=== PATIENT | male | born 1965 | race African-American/Black ===

== ENCOUNTER 2020-12-03 13:13 | Inpatient (IN) | payer OTHER ==
[2020-12-03 16:17] VITALS: BMI 25.8
[2020-12-03] MEDS ORDERED: IBUPROFEN 400 MG TABLET (FP) PO PRN (20:51)
[2020-12-03] MEDS ORDERED: guaiFENesin 200 MG/10 ML 10 ML UNIT-DOSE CUPS PO PRN (20:51)
[2020-12-03] MEDS ORDERED: P-EPHED 60MG/TRIPROLIDI 2.5MG TABLET PO PRN (20:51)
[2020-12-03] MEDS ORDERED: ACETAMINOPHEN 325 MG TABLET (FP) PO PRN (20:51)
[2020-12-03] MEDS ORDERED: MAG HYDROX/AL HYDROX/SIMETH 30 ML UNIT-DOSE CUP PO PRN (20:51)
[2020-12-03] MEDS ORDERED: MAGNESIUM CITRATE 300 ML BOTTLE PO PRN (20:51)
[2020-12-03] MEDS ORDERED: LOPERAMIDE HCL 2 MG CAPSULE PO PRN (20:51)
[2020-12-03] MEDS ORDERED: MAGNESIUM HYDROX 2400MG/30ML ORAL SUSPENSION 30 ML CUP PO PRN (20:51)
[2020-12-03] MEDS ORDERED: TUBERCULIN PPD 5 TU/0.1ML VIAL ID ONE ×2 (21:51→23:50)
[2020-12-03] MEDS: MELATONIN 5 MG TABLETS PO SCH (23:47)
[2020-12-03] MEDS: THIAMINE HCL 100 MG TABLET (FP) PO SCH (23:49)
[2020-12-04] MEDS: PRENATAL VITAMINS W/ FOLIC ACID TABLET (FP) PO SCH (09:23)
[2020-12-04] MEDS: ESCITALOPRAM OXALATE 10 MG TABLET PO SCH (09:53)
[2020-12-04] MEDS: COLLOIDAL OATMEAL 1 BAR EACH TP PRN (12:06)
[2020-12-04 12:36] LABS: HEMATOCRIT 32.4 % (35.4-49); HEMOGLOBIN 10.3 GM/dL (11.7-16.9); MCHC 31.9 g/dl (32.0-35.9); MEAN CELL VOLUME 78.5 fl (80-96); MEAN PLT VOLUME 7.9 fl (7.5-11.1); PLATELET COUNT 310 K/MM3 (134-434); RBC 4.13 M/mm3 (4.00-5.60); RDW 20.4 % (11.9-15.9); WHITE BLOOD COUNT 2.8 K/mm3 (4.0-10.0)
[2020-12-04 12:57] LABS: BLOOD UREA NITROGEN 14.8 mg/dL (7-18); CALCIUM 9.5 mg/dL (8.5-10.1)
[2020-12-04 12:59] LABS: ALBUMIN 3.5 g/dl (3.4-5.0)
[2020-12-04 13:01] LABS: CREATININE 1.2 mg/dL (0.55-1.3)
[2020-12-04 13:02] LABS: BILIRUBIN,TOTAL 0.4 mg/dL (0.2-1); TOT PROT 6.6 g/dl (6.4-8.2)
[2020-12-04] MEDS ORDERED: MIRTAZAPINE 15 MG TABLET (FP) ONE (21:23)
[2020-12-04] MEDS ORDERED: PATIENT'S OWN MEDICATION (NON-FORMULARY) (Calcipotriene 0.005% Top Crm 60 GM Tube) TP SCH (22:00)
[2020-12-04] MEDS: MELATONIN 5 MG TABLETS PO SCH (22:11)
[2020-12-04] MEDS: FAMOTIDINE 20 MG TABLET PO SCH (22:11)
[2020-12-04] MEDS: THIAMINE HCL 100 MG TABLET (FP) PO SCH (22:11)
[2020-12-04] MEDS: MIRTAZAPINE 30 MG TABLET PO SCH (22:12)
[2020-12-04] MEDS ORDERED: PT OWN MED DRAWER 7, Y5N ONE ×2 (22:13→22:16)
[2020-12-04] MEDS: TRIAMCINOLONE ACET 0.5% CREAM 15 GM TUBE TP SCH (22:13)
[2020-12-04] MEDS: TIMOLOL 0.5% OPHTHALMIC SOL 5 ML BOTTLE OD SCH (22:15)
[2020-12-05] MEDS ORDERED: PT OWN MED DRAWER 7, Y5N ONE ×6 (07:35→23:02)
[2020-12-05] MEDS: ESCITALOPRAM OXALATE 10 MG TABLET PO SCH (09:52)
[2020-12-05] MEDS: FAMOTIDINE 20 MG TABLET PO SCH ×2 (09:52→22:57)
[2020-12-05] MEDS: metoPROLOL SUCCINATE 25 MG TAB.SR.24H (FP) PO SCH (09:52)
[2020-12-05] MEDS: ISOSORBIDE MONONITRATE 30 MG TAB.SR.24H (FP) PO SCH (09:52)
[2020-12-05] MEDS: PRENATAL VITAMINS W/ FOLIC ACID TABLET (FP) PO SCH (09:55)
[2020-12-05] MEDS: ASPIRIN 81 MG CHEWABLE TABLETS PO SCH (09:55)
[2020-12-05] MEDS: TRIAMCINOLONE ACET 0.5% CREAM 15 GM TUBE TP SCH ×2 (09:55→22:58)
[2020-12-05] MEDS: FERROUS SO4 325 MG TABLET (FP) PO SCH (09:55)
[2020-12-05] MEDS: TIMOLOL 0.5% OPHTHALMIC SOL 5 ML BOTTLE OD SCH ×2 (09:56→22:58)
[2020-12-05] MEDS ORDERED: PATIENT'S OWN MEDICATION (NON-FORMULARY) (Ferrous Sulfate [Ferrous Sulfate] 325 MG Tablet) PO SCH (10:00)
[2020-12-05] MEDS ORDERED: PATIENT'S OWN MEDICATION (NON-FORMULARY) (Timolol Maleate/Pf [Timolol Maleate 0.5% Eye Dro AD SCH (10:00)
[2020-12-05 12:42] LABS: PH,URINE 6.5 (5.0-8.0); URINE APPEARANCE CLEAR; URINE BILIRUBIN NEGATIVE (NEGATIVE); URINE COLOR YELLOW; URINE GLUCOSE (UA) NEGATIVE (NEGATIVE); URINE KETONE NEGATIVE (NEGATIVE); URINE LEUK ESTERASE NEGATIVE (NEGATIVE); URINE NITRITE NEGATIVE (NEGATIVE); URINE PROTEIN NEGATIVE (NEGATIVE); URINE UROBILINOGEN 0.2 mg/dL (0.2-1.0)
[2020-12-05] MEDS ORDERED: MIRTAZAPINE 15 MG TABLET (FP) ONE (19:08)
[2020-12-05] MEDS: THIAMINE HCL 100 MG TABLET (FP) PO SCH (22:56)
[2020-12-05] MEDS: MELATONIN 5 MG TABLETS PO SCH (22:56)
[2020-12-05] MEDS: MIRTAZAPINE 30 MG TABLET PO SCH (22:58)
[2020-12-06] MEDS: metoPROLOL SUCCINATE 25 MG TAB.SR.24H (FP) PO SCH (09:45)
[2020-12-06] MEDS: ISOSORBIDE MONONITRATE 30 MG TAB.SR.24H (FP) PO SCH (09:45)
[2020-12-06] MEDS: PRENATAL VITAMINS W/ FOLIC ACID TABLET (FP) PO SCH (09:46)
[2020-12-06] MEDS: TRIAMCINOLONE ACET 0.5% CREAM 15 GM TUBE TP SCH ×2 (09:46→21:42)
[2020-12-06] MEDS: FAMOTIDINE 20 MG TABLET PO SCH ×2 (09:46→21:40)
[2020-12-06] MEDS: ESCITALOPRAM OXALATE 10 MG TABLET PO SCH (09:46)
[2020-12-06] MEDS: ASPIRIN 81 MG CHEWABLE TABLETS PO SCH (09:46)
[2020-12-06] MEDS: FERROUS SO4 325 MG TABLET (FP) PO SCH (09:46)
[2020-12-06] MEDS: TIMOLOL 0.5% OPHTHALMIC SOL 5 ML BOTTLE OD SCH ×2 (09:47→21:42)
[2020-12-06] MEDS ORDERED: MIRTAZAPINE 15 MG TABLET (FP) ONE (19:07)
[2020-12-06] MEDS ORDERED: PT OWN MED DRAWER 7, Y5N ONE (19:08)
[2020-12-06] MEDS: MELATONIN 5 MG TABLETS PO SCH (21:40)
[2020-12-06] MEDS: THIAMINE HCL 100 MG TABLET (FP) PO SCH (21:40)
[2020-12-06] MEDS: MIRTAZAPINE 30 MG TABLET PO SCH (21:41)
[2020-12-07 10:11] LABS: SARS-CoV-2 NAA Not Detected (Not Detected)
[2020-12-07] MEDS: ASPIRIN 81 MG CHEWABLE TABLETS PO SCH (10:27)
[2020-12-07] MEDS: FAMOTIDINE 20 MG TABLET PO SCH ×2 (10:27→22:54)
[2020-12-07] MEDS: ESCITALOPRAM OXALATE 10 MG TABLET PO SCH (10:28)
[2020-12-07] MEDS: ISOSORBIDE MONONITRATE 30 MG TAB.SR.24H (FP) PO SCH (10:29)
[2020-12-07] MEDS: FERROUS SO4 325 MG TABLET (FP) PO SCH (10:29)
[2020-12-07] MEDS: metoPROLOL SUCCINATE 25 MG TAB.SR.24H (FP) PO SCH (10:29)
[2020-12-07] MEDS: TIMOLOL 0.5% OPHTHALMIC SOL 5 ML BOTTLE OD SCH (10:29)
[2020-12-07] MEDS: PRENATAL VITAMINS W/ FOLIC ACID TABLET (FP) PO SCH (10:29)
[2020-12-07] MEDS: TRIAMCINOLONE ACET 0.5% CREAM 15 GM TUBE TP SCH ×2 (10:30→22:56)
[2020-12-07] MEDS ORDERED: MIRTAZAPINE 15 MG TABLET (FP) ONE (19:05)
[2020-12-07] MEDS: MELATONIN 5 MG TABLETS PO SCH (22:54)
[2020-12-07] MEDS: THIAMINE HCL 100 MG TABLET (FP) PO SCH (22:54)
[2020-12-07] MEDS: TIMOLOL 0.5% OPHTHALMIC SOL 5 ML BOTTLE OS SCH (22:55)
[2020-12-07] MEDS: MIRTAZAPINE 30 MG TABLET PO SCH (22:56)
[2020-12-08] MEDS ORDERED: PT OWN MED DRAWER 7, Y5N ONE (08:49)
[2020-12-08] MEDS: FAMOTIDINE 20 MG TABLET PO SCH ×2 (09:41→23:11)
[2020-12-08] MEDS: ASPIRIN 81 MG CHEWABLE TABLETS PO SCH (09:41)
[2020-12-08] MEDS: FERROUS SO4 325 MG TABLET (FP) PO SCH (09:41)
[2020-12-08] MEDS: PRENATAL VITAMINS W/ FOLIC ACID TABLET (FP) PO SCH (09:41)
[2020-12-08] MEDS: ESCITALOPRAM OXALATE 10 MG TABLET PO SCH (09:42)
[2020-12-08] MEDS: metoPROLOL SUCCINATE 25 MG TAB.SR.24H (FP) PO SCH (09:42)
[2020-12-08] MEDS: ISOSORBIDE MONONITRATE 30 MG TAB.SR.24H (FP) PO SCH (09:42)
[2020-12-08] MEDS: TIMOLOL 0.5% OPHTHALMIC SOL 5 ML BOTTLE OS SCH ×2 (09:43→23:12)
[2020-12-08] MEDS: TRIAMCINOLONE ACET 0.5% CREAM 15 GM TUBE TP SCH ×2 (09:43→23:11)
[2020-12-08] MEDS ORDERED: MIRTAZAPINE 15 MG TABLET (FP) ONE (19:16)
[2020-12-08] MEDS: MIRTAZAPINE 30 MG TABLET PO SCH (23:11)
[2020-12-08] MEDS: MELATONIN 5 MG TABLETS PO SCH (23:11)
[2020-12-08] MEDS: THIAMINE HCL 100 MG TABLET (FP) PO SCH (23:11)
[2020-12-09] MEDS: TRIAMCINOLONE ACET 0.5% CREAM 15 GM TUBE TP SCH (09:49)
[2020-12-09] MEDS: ASPIRIN 81 MG CHEWABLE TABLETS PO SCH (09:49)
[2020-12-09] MEDS: FERROUS SO4 325 MG TABLET (FP) PO SCH (09:50)
[2020-12-09] MEDS: ESCITALOPRAM OXALATE 10 MG TABLET PO SCH (09:50)
[2020-12-09] MEDS: ISOSORBIDE MONONITRATE 30 MG TAB.SR.24H (FP) PO SCH (09:50)
[2020-12-09] MEDS: PRENATAL VITAMINS W/ FOLIC ACID TABLET (FP) PO SCH (09:51)
[2020-12-09] MEDS: FAMOTIDINE 20 MG TABLET PO SCH ×2 (09:51→22:41)
[2020-12-09] MEDS: TIMOLOL 0.5% OPHTHALMIC SOL 5 ML BOTTLE OS SCH ×2 (09:51→22:44)
[2020-12-09] MEDS: metoPROLOL SUCCINATE 25 MG TAB.SR.24H (FP) PO SCH (09:52)
[2020-12-09] MEDS ORDERED: MIRTAZAPINE 15 MG TABLET (FP) ONE (19:31)
[2020-12-09] MEDS: MELATONIN 5 MG TABLETS PO SCH (22:42)
[2020-12-09] MEDS: THIAMINE HCL 100 MG TABLET (FP) PO SCH (22:42)
[2020-12-09] MEDS: MIRTAZAPINE 30 MG TABLET PO SCH (22:43)
[2020-12-10] MEDS: FAMOTIDINE 20 MG TABLET PO SCH ×2 (09:53→22:38)
[2020-12-10] MEDS: FERROUS SO4 325 MG TABLET (FP) PO SCH (09:53)
[2020-12-10] MEDS: metoPROLOL SUCCINATE 25 MG TAB.SR.24H (FP) PO SCH (09:53)
[2020-12-10] MEDS: ASPIRIN 81 MG CHEWABLE TABLETS PO SCH (09:53)
[2020-12-10] MEDS: ISOSORBIDE MONONITRATE 30 MG TAB.SR.24H (FP) PO SCH (09:53)
[2020-12-10] MEDS: TIMOLOL 0.5% OPHTHALMIC SOL 5 ML BOTTLE OS SCH ×2 (09:54→22:39)
[2020-12-10] MEDS: PRENATAL VITAMINS W/ FOLIC ACID TABLET (FP) PO SCH (09:54)
[2020-12-10] MEDS: ESCITALOPRAM OXALATE 10 MG TABLET PO SCH (09:54)
[2020-12-10] MEDS: CALCIPOTRIENE 0.005% TP SCH ×2 (11:52→22:39)
[2020-12-10] MEDS ORDERED: MASKS NR ONE (16:47)
[2020-12-10] MEDS ORDERED: MIRTAZAPINE 15 MG TABLET (FP) ONE (19:10)
[2020-12-10] MEDS: MIRTAZAPINE 30 MG TABLET PO SCH (22:38)
[2020-12-10] MEDS: THIAMINE HCL 100 MG TABLET (FP) PO SCH (22:39)
[2020-12-10] MEDS: MELATONIN 5 MG TABLETS PO SCH (22:41)
[2020-12-11] MEDS: ESCITALOPRAM OXALATE 10 MG TABLET PO SCH (09:52)
[2020-12-11] MEDS: FERROUS SO4 325 MG TABLET (FP) PO SCH (09:52)
[2020-12-11] MEDS: ASPIRIN 81 MG CHEWABLE TABLETS PO SCH (09:52)
[2020-12-11] MEDS: PRENATAL VITAMINS W/ FOLIC ACID TABLET (FP) PO SCH (09:53)
[2020-12-11] MEDS: metoPROLOL SUCCINATE 25 MG TAB.SR.24H (FP) PO SCH (09:53)
[2020-12-11] MEDS: FAMOTIDINE 20 MG TABLET PO SCH ×2 (09:53→22:50)
[2020-12-11] MEDS: ISOSORBIDE MONONITRATE 30 MG TAB.SR.24H (FP) PO SCH (09:53)
[2020-12-11] MEDS: CALCIPOTRIENE 0.005% TP SCH ×2 (09:54→22:59)
[2020-12-11] MEDS: TIMOLOL 0.5% OPHTHALMIC SOL 5 ML BOTTLE OS SCH ×2 (09:54→22:59)
[2020-12-11] MEDS ORDERED: MIRTAZAPINE 15 MG TABLET (FP) ONE (19:20)
[2020-12-11] MEDS ORDERED: PT OWN MED DRAWER 7, Y5N ONE (20:23)
[2020-12-11] MEDS: THIAMINE HCL 100 MG TABLET (FP) PO SCH (22:50)
[2020-12-11] MEDS: MELATONIN 5 MG TABLETS PO SCH (22:51)
[2020-12-11] MEDS: MIRTAZAPINE 30 MG TABLET PO SCH (22:51)
[2020-12-12] MEDS: FERROUS SO4 325 MG TABLET (FP) PO SCH (09:50)
[2020-12-12] MEDS: FAMOTIDINE 20 MG TABLET PO SCH ×2 (09:50→23:12)
[2020-12-12] MEDS: PRENATAL VITAMINS W/ FOLIC ACID TABLET (FP) PO SCH (09:51)
[2020-12-12] MEDS: ASPIRIN 81 MG CHEWABLE TABLETS PO SCH (09:51)
[2020-12-12] MEDS: ISOSORBIDE MONONITRATE 30 MG TAB.SR.24H (FP) PO SCH (09:51)
[2020-12-12] MEDS: CALCIPOTRIENE 0.005% TP SCH ×2 (09:51→23:12)
[2020-12-12] MEDS: ESCITALOPRAM OXALATE 10 MG TABLET PO SCH (09:51)
[2020-12-12] MEDS: metoPROLOL SUCCINATE 25 MG TAB.SR.24H (FP) PO SCH (09:51)
[2020-12-12] MEDS: TIMOLOL 0.5% OPHTHALMIC SOL 5 ML BOTTLE OS SCH ×2 (09:52→23:14)
[2020-12-12] MEDS ORDERED: MIRTAZAPINE 15 MG TABLET (FP) ONE (20:27)
[2020-12-12] MEDS ORDERED: PT OWN MED DRAWER 7, Y5N ONE (20:27)
[2020-12-12] MEDS: THIAMINE HCL 100 MG TABLET (FP) PO SCH (23:11)
[2020-12-12] MEDS: MELATONIN 5 MG TABLETS PO SCH (23:14)
[2020-12-12] MEDS: MIRTAZAPINE 30 MG TABLET PO SCH (23:14)
[2020-12-13] MEDS: FERROUS SO4 325 MG TABLET (FP) PO SCH (10:02)
[2020-12-13] MEDS: FAMOTIDINE 20 MG TABLET PO SCH ×2 (10:02→22:50)
[2020-12-13] MEDS: PRENATAL VITAMINS W/ FOLIC ACID TABLET (FP) PO SCH (10:03)
[2020-12-13] MEDS: ISOSORBIDE MONONITRATE 30 MG TAB.SR.24H (FP) PO SCH (10:03)
[2020-12-13] MEDS: metoPROLOL SUCCINATE 25 MG TAB.SR.24H (FP) PO SCH (10:03)
[2020-12-13] MEDS: ASPIRIN 81 MG CHEWABLE TABLETS PO SCH (10:03)
[2020-12-13] MEDS: ESCITALOPRAM OXALATE 10 MG TABLET PO SCH (10:03)
[2020-12-13] MEDS: CALCIPOTRIENE 0.005% TP SCH ×2 (10:04→22:50)
[2020-12-13] MEDS: TIMOLOL 0.5% OPHTHALMIC SOL 5 ML BOTTLE OS SCH ×2 (10:05→22:50)
[2020-12-13] MEDS ORDERED: PT OWN MED DRAWER 7, Y5N ONE ×2 (10:07→18:41)
[2020-12-13] MEDS ORDERED: MIRTAZAPINE 15 MG TABLET (FP) ONE (18:39)
[2020-12-13] MEDS: MELATONIN 5 MG TABLETS PO SCH (22:50)
[2020-12-13] MEDS: THIAMINE HCL 100 MG TABLET (FP) PO SCH (22:50)
[2020-12-13] MEDS: MIRTAZAPINE 30 MG TABLET PO SCH (22:50)
[2020-12-14] MEDS: CALCIPOTRIENE 0.005% TP SCH ×2 (10:17→22:59)
[2020-12-14] MEDS: ESCITALOPRAM OXALATE 10 MG TABLET PO SCH (10:18)
[2020-12-14] MEDS: TIMOLOL 0.5% OPHTHALMIC SOL 5 ML BOTTLE OS SCH ×2 (10:18→22:59)
[2020-12-14] MEDS: FAMOTIDINE 20 MG TABLET PO SCH ×2 (10:18→22:59)
[2020-12-14] MEDS: FERROUS SO4 325 MG TABLET (FP) PO SCH (10:18)
[2020-12-14] MEDS: ISOSORBIDE MONONITRATE 30 MG TAB.SR.24H (FP) PO SCH (10:18)
[2020-12-14] MEDS: ASPIRIN 81 MG CHEWABLE TABLETS PO SCH (10:19)
[2020-12-14] MEDS: metoPROLOL SUCCINATE 25 MG TAB.SR.24H (FP) PO SCH (10:19)
[2020-12-14] MEDS: PRENATAL VITAMINS W/ FOLIC ACID TABLET (FP) PO SCH (10:19)
[2020-12-14] MEDS ORDERED: PT OWN MED DRAWER 7, Y5N ONE (20:00)
[2020-12-14] MEDS ORDERED: MIRTAZAPINE 15 MG TABLET (FP) ONE (20:00)
[2020-12-14] MEDS: THIAMINE HCL 100 MG TABLET (FP) PO SCH (22:59)
[2020-12-14] MEDS: MIRTAZAPINE 30 MG TABLET PO SCH (22:59)
[2020-12-14] MEDS: MELATONIN 5 MG TABLETS PO SCH (22:59)
[2020-12-15] MEDS ORDERED: PT OWN MED DRAWER 7, Y5N ONE ×2 (08:09→22:39)
[2020-12-15] MEDS: CALCIPOTRIENE 0.005% TP SCH ×2 (10:10→22:37)
[2020-12-15] MEDS: TIMOLOL 0.5% OPHTHALMIC SOL 5 ML BOTTLE OS SCH ×2 (10:10→22:36)
[2020-12-15] MEDS: ISOSORBIDE MONONITRATE 30 MG TAB.SR.24H (FP) PO SCH (10:11)
[2020-12-15] MEDS: ESCITALOPRAM OXALATE 10 MG TABLET PO SCH (10:11)
[2020-12-15] MEDS: FERROUS SO4 325 MG TABLET (FP) PO SCH (10:11)
[2020-12-15] MEDS: FAMOTIDINE 20 MG TABLET PO SCH ×2 (10:11→22:35)
[2020-12-15] MEDS: PRENATAL VITAMINS W/ FOLIC ACID TABLET (FP) PO SCH (10:12)
[2020-12-15] MEDS: metoPROLOL SUCCINATE 25 MG TAB.SR.24H (FP) PO SCH (10:12)
[2020-12-15] MEDS: ASPIRIN 81 MG CHEWABLE TABLETS PO SCH (10:12)
[2020-12-15] MEDS ORDERED: MIRTAZAPINE 15 MG TABLET (FP) ONE (19:14)
[2020-12-15] MEDS: MELATONIN 5 MG TABLETS PO SCH (22:34)
[2020-12-15] MEDS: THIAMINE HCL 100 MG TABLET (FP) PO SCH (22:34)
[2020-12-15] MEDS: MIRTAZAPINE 30 MG TABLET PO SCH (22:35)
[2020-12-16] MEDS: ESCITALOPRAM OXALATE 10 MG TABLET PO SCH (09:58)
[2020-12-16] MEDS: ISOSORBIDE MONONITRATE 30 MG TAB.SR.24H (FP) PO SCH (09:58)
[2020-12-16] MEDS: metoPROLOL SUCCINATE 25 MG TAB.SR.24H (FP) PO SCH (09:58)
[2020-12-16] MEDS: ASPIRIN 81 MG CHEWABLE TABLETS PO SCH (09:59)
[2020-12-16] MEDS: CALCIPOTRIENE 0.005% TP SCH ×2 (09:59→22:32)
[2020-12-16] MEDS: FAMOTIDINE 20 MG TABLET PO SCH ×2 (09:59→22:31)
[2020-12-16] MEDS: FERROUS SO4 325 MG TABLET (FP) PO SCH (09:59)
[2020-12-16] MEDS: PRENATAL VITAMINS W/ FOLIC ACID TABLET (FP) PO SCH (09:59)
[2020-12-16] MEDS: TIMOLOL 0.5% OPHTHALMIC SOL 5 ML BOTTLE OS SCH ×2 (10:00→22:32)
[2020-12-16] MEDS ORDERED: MIRTAZAPINE 15 MG TABLET (FP) ONE (19:11)
[2020-12-16] MEDS ORDERED: PT OWN MED DRAWER 7, Y5N ONE (19:12)
[2020-12-16] MEDS: THIAMINE HCL 100 MG TABLET (FP) PO SCH (22:31)
[2020-12-16] MEDS: MIRTAZAPINE 30 MG TABLET PO SCH (22:31)
[2020-12-16] MEDS: MELATONIN 5 MG TABLETS PO SCH (22:31)
[2020-12-17] MEDS: ASPIRIN 81 MG CHEWABLE TABLETS PO SCH (10:29)
[2020-12-17] MEDS: ISOSORBIDE MONONITRATE 30 MG TAB.SR.24H (FP) PO SCH (10:29)
[2020-12-17] MEDS: FERROUS SO4 325 MG TABLET (FP) PO SCH (10:29)
[2020-12-17] MEDS: PRENATAL VITAMINS W/ FOLIC ACID TABLET (FP) PO SCH (10:30)
[2020-12-17] MEDS: ESCITALOPRAM OXALATE 10 MG TABLET PO SCH (10:30)
[2020-12-17] MEDS: FAMOTIDINE 20 MG TABLET PO SCH ×2 (10:30→23:07)
[2020-12-17] MEDS: metoPROLOL SUCCINATE 25 MG TAB.SR.24H (FP) PO SCH (10:31)
[2020-12-17] MEDS: TIMOLOL 0.5% OPHTHALMIC SOL 5 ML BOTTLE OS SCH ×2 (10:31→23:08)
[2020-12-17] MEDS: CALCIPOTRIENE 0.005% TP SCH ×2 (11:00→23:08)
[2020-12-17] MEDS: MELATONIN 5 MG TABLETS PO SCH (23:07)
[2020-12-17] MEDS: MIRTAZAPINE 30 MG TABLET PO SCH (23:07)
[2020-12-17] MEDS: THIAMINE HCL 100 MG TABLET (FP) PO SCH (23:07)
[2020-12-17] MEDS ORDERED: PT OWN MED DRAWER 7, Y5N ONE (23:12)
[2020-12-18] MEDS: TIMOLOL 0.5% OPHTHALMIC SOL 5 ML BOTTLE OS SCH ×2 (10:04→22:57)
[2020-12-18] MEDS: CALCIPOTRIENE 0.005% TP SCH ×2 (10:04→22:56)
[2020-12-18] MEDS: FERROUS SO4 325 MG TABLET (FP) PO SCH (10:05)
[2020-12-18] MEDS: ASPIRIN 81 MG CHEWABLE TABLETS PO SCH (10:05)
[2020-12-18] MEDS: metoPROLOL SUCCINATE 25 MG TAB.SR.24H (FP) PO SCH (10:05)
[2020-12-18] MEDS: ESCITALOPRAM OXALATE 10 MG TABLET PO SCH (10:05)
[2020-12-18] MEDS: FAMOTIDINE 20 MG TABLET PO SCH ×2 (10:05→22:56)
[2020-12-18] MEDS: ISOSORBIDE MONONITRATE 30 MG TAB.SR.24H (FP) PO SCH (10:05)
[2020-12-18] MEDS: PRENATAL VITAMINS W/ FOLIC ACID TABLET (FP) PO SCH (10:06)
[2020-12-18] MEDS ORDERED: PT OWN MED DRAWER 7, Y5N ONE ×3 (10:39→22:44)
[2020-12-18] MEDS ORDERED: MIRTAZAPINE 15 MG TABLET (FP) ONE (19:02)
[2020-12-18] MEDS: THIAMINE HCL 100 MG TABLET (FP) PO SCH (22:56)
[2020-12-18] MEDS: MELATONIN 5 MG TABLETS PO SCH (22:56)
[2020-12-18] MEDS: MIRTAZAPINE 30 MG TABLET PO SCH (22:57)
[2020-12-19] MEDS: FAMOTIDINE 20 MG TABLET PO SCH ×2 (09:46→23:19)
[2020-12-19] MEDS: ASPIRIN 81 MG CHEWABLE TABLETS PO SCH (09:46)
[2020-12-19] MEDS: ISOSORBIDE MONONITRATE 30 MG TAB.SR.24H (FP) PO SCH (09:46)
[2020-12-19] MEDS: FERROUS SO4 325 MG TABLET (FP) PO SCH (09:46)
[2020-12-19] MEDS: PRENATAL VITAMINS W/ FOLIC ACID TABLET (FP) PO SCH (09:46)
[2020-12-19] MEDS: metoPROLOL SUCCINATE 25 MG TAB.SR.24H (FP) PO SCH (09:46)
[2020-12-19] MEDS: TIMOLOL 0.5% OPHTHALMIC SOL 5 ML BOTTLE OS SCH ×2 (09:47→23:21)
[2020-12-19] MEDS: ESCITALOPRAM OXALATE 10 MG TABLET PO SCH (09:47)
[2020-12-19] MEDS: CALCIPOTRIENE 0.005% TP SCH ×2 (09:49→23:18)
[2020-12-19] MEDS ORDERED: HYDROCORTISONE 1% TOPICAL OINT 30 GM TUBE TP PRN (13:30)
[2020-12-19] MEDS ORDERED: PT OWN MED DRAWER 7, Y5N ONE (15:29)
[2020-12-19] MEDS ORDERED: MIRTAZAPINE 15 MG TABLET (FP) ONE (19:23)
[2020-12-19] MEDS: THIAMINE HCL 100 MG TABLET (FP) PO SCH (23:19)
[2020-12-19] MEDS: MIRTAZAPINE 30 MG TABLET PO SCH (23:19)
[2020-12-19] MEDS: MELATONIN 5 MG TABLETS PO SCH (23:21)
[2020-12-20] MEDS: FAMOTIDINE 20 MG TABLET PO SCH ×2 (09:37→23:21)
[2020-12-20] MEDS: FERROUS SO4 325 MG TABLET (FP) PO SCH (09:37)
[2020-12-20] MEDS: ESCITALOPRAM OXALATE 10 MG TABLET PO SCH (09:37)
[2020-12-20] MEDS: ASPIRIN 81 MG CHEWABLE TABLETS PO SCH (09:37)
[2020-12-20] MEDS: metoPROLOL SUCCINATE 25 MG TAB.SR.24H (FP) PO SCH (09:38)
[2020-12-20] MEDS: PRENATAL VITAMINS W/ FOLIC ACID TABLET (FP) PO SCH (09:38)
[2020-12-20] MEDS: ISOSORBIDE MONONITRATE 30 MG TAB.SR.24H (FP) PO SCH (09:38)
[2020-12-20] MEDS: TIMOLOL 0.5% OPHTHALMIC SOL 5 ML BOTTLE OS SCH ×2 (09:39→23:21)
[2020-12-20] MEDS: CALCIPOTRIENE 0.005% TP SCH ×2 (09:40→23:21)
[2020-12-20] MEDS: MIRTAZAPINE 30 MG TABLET PO SCH (23:21)
[2020-12-20] MEDS: THIAMINE HCL 100 MG TABLET (FP) PO SCH (23:21)
[2020-12-20] MEDS: MELATONIN 5 MG TABLETS PO SCH (23:21)
[2020-12-20] MEDS ORDERED: PT OWN MED DRAWER 7, Y5N ONE (23:29)
[2020-12-21] MEDS ORDERED: PT OWN MED DRAWER 7, Y5N ONE (08:50)
[2020-12-21] MEDS: FERROUS SO4 325 MG TABLET (FP) PO SCH (09:14)
[2020-12-21] MEDS: FAMOTIDINE 20 MG TABLET PO SCH ×2 (09:14→22:21)
[2020-12-21] MEDS: ESCITALOPRAM OXALATE 10 MG TABLET PO SCH (09:14)
[2020-12-21] MEDS: PRENATAL VITAMINS W/ FOLIC ACID TABLET (FP) PO SCH (09:15)
[2020-12-21] MEDS: ISOSORBIDE MONONITRATE 30 MG TAB.SR.24H (FP) PO SCH (09:15)
[2020-12-21] MEDS: metoPROLOL SUCCINATE 25 MG TAB.SR.24H (FP) PO SCH (09:15)
[2020-12-21] MEDS: ASPIRIN 81 MG CHEWABLE TABLETS PO SCH (09:15)
[2020-12-21] MEDS: TIMOLOL 0.5% OPHTHALMIC SOL 5 ML BOTTLE OS SCH ×2 (09:16→22:21)
[2020-12-21] MEDS: CALCIPOTRIENE 0.005% TP SCH ×2 (09:16→22:22)
[2020-12-21] MEDS ORDERED: MIRTAZAPINE 15 MG TABLET (FP) ONE (18:44)
[2020-12-21] MEDS: MELATONIN 5 MG TABLETS PO SCH (22:20)
[2020-12-21] MEDS: MIRTAZAPINE 30 MG TABLET PO SCH (22:20)
[2020-12-21] MEDS: THIAMINE HCL 100 MG TABLET (FP) PO SCH (22:20)
[2020-12-22] MEDS ORDERED: PT OWN MED DRAWER 7, Y5N ONE ×2 (09:08→22:24)
[2020-12-22] MEDS: ESCITALOPRAM OXALATE 10 MG TABLET PO SCH (10:41)
[2020-12-22] MEDS: PRENATAL VITAMINS W/ FOLIC ACID TABLET (FP) PO SCH (10:42)
[2020-12-22] MEDS: FAMOTIDINE 20 MG TABLET PO SCH ×2 (10:42→22:24)
[2020-12-22] MEDS: FERROUS SO4 325 MG TABLET (FP) PO SCH (10:42)
[2020-12-22] MEDS: CALCIPOTRIENE 0.005% TP SCH ×2 (10:42→22:25)
[2020-12-22] MEDS: ISOSORBIDE MONONITRATE 30 MG TAB.SR.24H (FP) PO SCH (10:42)
[2020-12-22] MEDS: ASPIRIN 81 MG CHEWABLE TABLETS PO SCH (10:42)
[2020-12-22] MEDS: metoPROLOL SUCCINATE 25 MG TAB.SR.24H (FP) PO SCH (10:42)
[2020-12-22] MEDS: TIMOLOL 0.5% OPHTHALMIC SOL 5 ML BOTTLE OS SCH ×2 (10:43→22:25)
[2020-12-22] MEDS ORDERED: MIRTAZAPINE 15 MG TABLET (FP) ONE (18:23)
[2020-12-22] MEDS: MELATONIN 5 MG TABLETS PO SCH (22:22)
[2020-12-22] MEDS: THIAMINE HCL 100 MG TABLET (FP) PO SCH (22:22)
[2020-12-22] MEDS: MIRTAZAPINE 30 MG TABLET PO SCH (22:24)
[2020-12-22] MEDS: COLLOIDAL OATMEAL 1 BAR EACH TP PRN (22:27)
[2020-12-23 06:32] VITALS: BP 139/82; PULSE 691; TEMP 97
[2020-12-23] MEDS ORDERED: PT OWN MED DRAWER 7, Y5N ONE (08:36)
[2020-12-23] MEDS: CALCIPOTRIENE 0.005% TP SCH (09:00)
[2020-12-23] MEDS: ASPIRIN 81 MG CHEWABLE TABLETS PO SCH (09:00)
[2020-12-23] MEDS: FERROUS SO4 325 MG TABLET (FP) PO SCH (09:00)
[2020-12-23] MEDS: TIMOLOL 0.5% OPHTHALMIC SOL 5 ML BOTTLE OS SCH (09:01)
[2020-12-23] MEDS: ESCITALOPRAM OXALATE 10 MG TABLET PO SCH (09:01)
[2020-12-23] MEDS: metoPROLOL SUCCINATE 25 MG TAB.SR.24H (FP) PO SCH (09:01)
[2020-12-23] MEDS: ISOSORBIDE MONONITRATE 30 MG TAB.SR.24H (FP) PO SCH (09:01)
[2020-12-23] MEDS: PRENATAL VITAMINS W/ FOLIC ACID TABLET (FP) PO SCH (09:01)
[2020-12-23] MEDS: FAMOTIDINE 20 MG TABLET PO SCH (09:02)
== END 2020-12-23 09:05 | disposition home or self-care (01) | DRG 772 ==
LOC: YASAS 13:13 → Y3E 20:53
PROVIDERS: ADMIT Allergy & Immunology; ATTEND Allergy & Immunology
PROC: HZ42ZZZ Group Counseling for Substance Abuse Treatment, Cognitive-Behavioral (ICD-10-PCS; principal; 2020-12-03)
DX: F10.20 Alcohol dependence, uncomplicated (principal); F12.20 Cannabis dependence, uncomplicated; F41.8 Other specified anxiety disorders; F32.9 Major depressive disorder, single episode, unspecified; F43.10 Post-traumatic stress disorder, unspecified; E78.5 Hyperlipidemia, unspecified; H54.62 Unqualified visual loss, left eye, normal vision right eye; I10 Essential (primary) hypertension; J44.9 Chronic obstructive pulmonary disease, unspecified; K21.9 Gastro-esophageal reflux disease without esophagitis; L40.9 Psoriasis, unspecified; Z87.891 Personal history of nicotine dependence
CPT/HCPCS: 36415; 80053; 81003; 82962; 83036; 85027; 86780; 93005; 93010; C9803; U0003; U0005

== ENCOUNTER 2021-09-10 14:31 | Inpatient (IN) | payer OTHER ==
[2021-09-10 18:46] VITALS: BMI 30.2
[2021-09-10] MEDS ORDERED: MAGNESIUM CITRATE 300 ML BOTTLE PO PRN (19:35)
[2021-09-10] MEDS ORDERED: IBUPROFEN 400 MG TABLET (FP) PO PRN (19:35)
[2021-09-10] MEDS ORDERED: ONDANSETRON *ODT* 4 MG TABLET SL PRN (19:35)
[2021-09-10] MEDS ORDERED: MENTHOL/PHENOL 1 EACH UD MM PRN (19:35)
[2021-09-10] MEDS ORDERED: MAG HYDROX/AL HYDROX/SIMETH 30 ML UNIT-DOSE CUP PO PRN (19:35)
[2021-09-10] MEDS ORDERED: ACETAMINOPHEN 325 MG TABLET (FP) PO PRN ×2 (19:35)
[2021-09-10] MEDS ORDERED: hydrOXYzine PAMOATE 25 MG CAPSULE (FP) PO PRN (19:35)
[2021-09-10] MEDS ORDERED: MAGNESIUM HYDROX 2400MG/30ML ORAL SUSPENSION 30 ML CUP PO PRN (19:35)
[2021-09-10] MEDS ORDERED: BISMUTH SUBSALICYLATE 524 MG/30 ML PO PRN (19:35)
[2021-09-10] MEDS: ASPIRIN 81 MG CHEWABLE TABLETS PO SCH (22:10)
[2021-09-10] MEDS: FAMOTIDINE 20 MG TABLET PO SCH (22:10)
[2021-09-10] MEDS: THIAMINE HCL 100 MG TABLET (FP) PO SCH (22:11)
[2021-09-10] MEDS: MELATONIN 5 MG TABLETS PO SCH (22:36)
[2021-09-10] MEDS ORDERED: traZODone HCL 50 MG TABLET (FP) PO ONE (23:00)
[2021-09-11] MEDS ORDERED: DOXYCYCLINE HYCLATE 100 MG CAPSULE PO SCH (10:00)
[2021-09-11] MEDS ORDERED: chlordiazePOXIDE HCL 25 MG CAPSULE PO PRN (10:13)
[2021-09-11] MEDS: METHOCARBAMOL 500 MG TABLET PO PRN (10:22)
[2021-09-11] MEDS: CALCIUM 500MG/VIT-D 200 UNITS COMBO TABLET (FP) PO SCH (10:23)
[2021-09-11] MEDS: PANTOPRAZOLE 40 MG TABLET PO SCH (10:23)
[2021-09-11] MEDS: DOXYCYCLINE HYCLATE 100 MG PO SCH ×2 (10:23→17:10)
[2021-09-11] MEDS: metoPROLOL SUCCINATE 25 MG TAB.SR.24H (FP) PO SCH (10:23)
[2021-09-11] MEDS: ASPIRIN 81 MG CHEWABLE TABLETS PO SCH (10:23)
[2021-09-11] MEDS: FAMOTIDINE 20 MG TABLET PO SCH ×2 (10:23→22:31)
[2021-09-11] MEDS: amLODIPine BESYLATE 5 MG TABLET (FP) PO SCH (10:23)
[2021-09-11] MEDS: FERROUS SO4 325 MG TABLET (FP) PO SCH (10:23)
[2021-09-11] MEDS: PRENATAL VITAMINS W/ FOLIC ACID TABLET (FP) PO SCH (10:23)
[2021-09-11 11:24] LABS: CALCIUM 9.1 mg/dL (8.5-10.1)
[2021-09-11 11:25] LABS: ALBUMIN 3.3 g/dl (3.4-5.0); BLOOD UREA NITROGEN 14.1 mg/dL (7-18)
[2021-09-11 11:28] LABS: CREATININE 1.1 mg/dL (0.55-1.3)
[2021-09-11 11:29] LABS: BILIRUBIN,TOTAL 0.7 mg/dL (0.2-1); TOT PROT 6.5 g/dl (6.4-8.2)
[2021-09-11] MEDS: chlordiazePOXIDE HCL 25 MG CAPSULE PO SCH ×3 (11:29→22:29)
[2021-09-11 11:35] LABS: HEMATOCRIT 42.3 % (35.4-49); HEMOGLOBIN 14.4 GM/dL (11.7-16.9); MCH 31.6 pg (25.7-33.7); MCHC 34.1 g/dl (32.0-35.9); MEAN CELL VOLUME 92.6 fl (80-96); MEAN PLT VOLUME 7.6 fl (7.5-11.1); PLATELET COUNT 236 10^3/uL (134-434); RBC 4.57 M/mm3 (4.00-5.60); RDW 14.9 % (11.9-15.9); WHITE BLOOD COUNT 3.4 K/mm3 (4.0-10.0)
[2021-09-11] MEDS: CALCIPOTRIENE 0.005% TP SCH ×3 (14:29→22:35)
[2021-09-11] MEDS: THIAMINE HCL 100 MG TABLET (FP) PO SCH (22:31)
[2021-09-11] MEDS: traZODone HCL 100 MG TABLET (FP) PO SCH (22:31)
[2021-09-11] MEDS: MELATONIN 5 MG TABLETS PO SCH (22:35)
[2021-09-12] MEDS: chlordiazePOXIDE HCL 25 MG CAPSULE PO SCH ×4 (05:49→22:19)
[2021-09-12] MEDS: ASPIRIN 81 MG CHEWABLE TABLETS PO SCH (10:46)
[2021-09-12] MEDS: CALCIPOTRIENE 0.005% TP SCH ×2 (10:46→22:18)
[2021-09-12] MEDS: FERROUS SO4 325 MG TABLET (FP) PO SCH (10:46)
[2021-09-12] MEDS: FAMOTIDINE 20 MG TABLET PO SCH ×2 (10:47→22:19)
[2021-09-12] MEDS: DOXYCYCLINE HYCLATE 100 MG PO SCH ×2 (10:47→17:56)
[2021-09-12] MEDS: CALCIUM 500MG/VIT-D 200 UNITS COMBO TABLET (FP) PO SCH (10:47)
[2021-09-12] MEDS: PANTOPRAZOLE 40 MG TABLET PO SCH (10:47)
[2021-09-12] MEDS: PRENATAL VITAMINS W/ FOLIC ACID TABLET (FP) PO SCH (10:47)
[2021-09-12] MEDS: amLODIPine BESYLATE 5 MG TABLET (FP) PO SCH (10:47)
[2021-09-12] MEDS: metoPROLOL SUCCINATE 25 MG TAB.SR.24H (FP) PO SCH (12:49)
[2021-09-12] MEDS: traZODone HCL 100 MG TABLET (FP) PO SCH (22:19)
[2021-09-12] MEDS: THIAMINE HCL 100 MG TABLET (FP) PO SCH (22:19)
[2021-09-12] MEDS: MELATONIN 5 MG TABLETS PO SCH (22:21)
[2021-09-13] MEDS: chlordiazePOXIDE HCL 25 MG CAPSULE PO SCH ×4 (06:08→22:20)
[2021-09-13] MEDS: DOXYCYCLINE HYCLATE 100 MG PO SCH ×2 (10:25→17:44)
[2021-09-13] MEDS: FAMOTIDINE 20 MG TABLET PO SCH ×3 (10:25→22:20)
[2021-09-13] MEDS: FERROUS SO4 325 MG TABLET (FP) PO SCH (10:25)
[2021-09-13] MEDS: PANTOPRAZOLE 40 MG TABLET PO SCH (10:25)
[2021-09-13] MEDS: CALCIUM 500MG/VIT-D 200 UNITS COMBO TABLET (FP) PO SCH (10:25)
[2021-09-13] MEDS: ASPIRIN 81 MG CHEWABLE TABLETS PO SCH (10:25)
[2021-09-13] MEDS: amLODIPine BESYLATE 5 MG TABLET (FP) PO SCH (10:25)
[2021-09-13] MEDS: PRENATAL VITAMINS W/ FOLIC ACID TABLET (FP) PO SCH (10:25)
[2021-09-13] MEDS: CALCIPOTRIENE 0.005% TP SCH ×2 (10:26→22:21)
[2021-09-13] MEDS: METHOCARBAMOL 500 MG TABLET PO PRN (10:27)
[2021-09-13] MEDS: metoPROLOL SUCCINATE 25 MG TAB.SR.24H (FP) PO SCH (11:22)
[2021-09-13] MEDS: traZODone HCL 100 MG TABLET (FP) PO SCH (22:20)
[2021-09-13] MEDS: THIAMINE HCL 100 MG TABLET (FP) PO SCH (22:22)
[2021-09-13] MEDS: MELATONIN 5 MG TABLETS PO SCH (22:22)
[2021-09-14] MEDS ORDERED: chlordiazePOXIDE HCL 10 MG CAPSULE PO PRN
[2021-09-14] MEDS: chlordiazePOXIDE HCL 10 MG CAPSULE PO SCH ×4 (05:28→22:12)
[2021-09-14] MEDS: METHOCARBAMOL 500 MG TABLET PO PRN (05:29)
[2021-09-14] MEDS: ASPIRIN 81 MG CHEWABLE TABLETS PO SCH (10:38)
[2021-09-14] MEDS: PRENATAL VITAMINS W/ FOLIC ACID TABLET (FP) PO SCH (10:38)
[2021-09-14] MEDS: PANTOPRAZOLE 40 MG TABLET PO SCH (10:38)
[2021-09-14] MEDS: FERROUS SO4 325 MG TABLET (FP) PO SCH (10:38)
[2021-09-14] MEDS: CALCIUM 500MG/VIT-D 200 UNITS COMBO TABLET (FP) PO SCH (10:38)
[2021-09-14] MEDS: amLODIPine BESYLATE 5 MG TABLET (FP) PO SCH (10:39)
[2021-09-14] MEDS: metoPROLOL SUCCINATE 25 MG TAB.SR.24H (FP) PO SCH (10:40)
[2021-09-14] MEDS: DOXYCYCLINE HYCLATE 100 MG PO SCH ×2 (10:40→17:48)
[2021-09-14] MEDS: CALCIPOTRIENE 0.005% TP SCH ×2 (10:40→22:12)
[2021-09-14] MEDS: FAMOTIDINE 20 MG TABLET PO SCH ×2 (10:40→22:12)
[2021-09-14] MEDS: MELATONIN 5 MG TABLETS PO SCH (22:11)
[2021-09-14] MEDS: traZODone HCL 100 MG TABLET (FP) PO SCH (22:12)
[2021-09-14] MEDS: THIAMINE HCL 100 MG TABLET (FP) PO SCH (22:12)
[2021-09-15] MEDS: chlordiazePOXIDE HCL 10 MG CAPSULE PO SCH ×2 (05:34→17:40)
[2021-09-15] MEDS: PRENATAL VITAMINS W/ FOLIC ACID TABLET (FP) PO SCH (10:35)
[2021-09-15] MEDS: metoPROLOL SUCCINATE 25 MG TAB.SR.24H (FP) PO SCH (10:36)
[2021-09-15] MEDS: FAMOTIDINE 20 MG TABLET PO SCH ×2 (10:36→22:07)
[2021-09-15] MEDS: amLODIPine BESYLATE 5 MG TABLET (FP) PO SCH (10:36)
[2021-09-15] MEDS: METHOCARBAMOL 500 MG TABLET PO PRN (10:36)
[2021-09-15] MEDS: ASPIRIN 81 MG CHEWABLE TABLETS PO SCH (10:36)
[2021-09-15] MEDS: CALCIUM 500MG/VIT-D 200 UNITS COMBO TABLET (FP) PO SCH (10:36)
[2021-09-15] MEDS: FERROUS SO4 325 MG TABLET (FP) PO SCH (10:36)
[2021-09-15] MEDS: PANTOPRAZOLE 40 MG TABLET PO SCH (10:36)
[2021-09-15] MEDS: CALCIPOTRIENE 0.005% TP SCH ×2 (10:37→22:07)
[2021-09-15] MEDS: DOXYCYCLINE HYCLATE 100 MG PO SCH ×2 (10:37→17:41)
[2021-09-15] MEDS: traZODone HCL 100 MG TABLET (FP) PO SCH (22:07)
[2021-09-15] MEDS: THIAMINE HCL 100 MG TABLET (FP) PO SCH (22:07)
[2021-09-15] MEDS: MELATONIN 5 MG TABLETS PO SCH (22:07)
[2021-09-16] MEDS ORDERED: chlordiazePOXIDE HCL 10 MG CAPSULE PO ONE (05:00)
[2021-09-16] MEDS: PRENATAL VITAMINS W/ FOLIC ACID TABLET (FP) PO SCH (10:55)
[2021-09-16] MEDS: metoPROLOL SUCCINATE 25 MG TAB.SR.24H (FP) PO SCH (10:55)
[2021-09-16] MEDS: METHOCARBAMOL 500 MG TABLET PO PRN (10:56)
[2021-09-16] MEDS: FERROUS SO4 325 MG TABLET (FP) PO SCH (10:56)
[2021-09-16] MEDS: CALCIUM 500MG/VIT-D 200 UNITS COMBO TABLET (FP) PO SCH (10:56)
[2021-09-16] MEDS: amLODIPine BESYLATE 5 MG TABLET (FP) PO SCH (10:56)
[2021-09-16] MEDS: ASPIRIN 81 MG CHEWABLE TABLETS PO SCH (10:56)
[2021-09-16] MEDS: FAMOTIDINE 20 MG TABLET PO SCH (10:56)
[2021-09-16] MEDS: DOXYCYCLINE HYCLATE 100 MG PO SCH (10:57)
[2021-09-16] MEDS: CALCIPOTRIENE 0.005% TP SCH (10:57)
[2021-09-16] MEDS ORDERED: DOXYCYCLINE HYCLATE 100 MG PO SCH (15:18)
[2021-09-16 18:00] VITALS: BP 143/88; PULSE 78; TEMP 98.1
== END 2021-09-16 18:55 | disposition other institution (70) | DRG 775 ==
LOC: YASAS 14:31 → Y6N 20:52
PROVIDERS: ADMIT Allergy & Immunology; ATTEND Allergy & Immunology
PROC: HZ2ZZZZ Detoxification Services for Substance Abuse Treatment (ICD-10-PCS; principal; 2021-09-10)
DX: F10.20 Alcohol dependence, uncomplicated (principal); F12.20 Cannabis dependence, uncomplicated; F34.1 Dysthymic disorder; D72.819 Decreased white blood cell count, unspecified; D50.9 Iron deficiency anemia, unspecified; E58 Dietary calcium deficiency; E55.9 Vitamin D deficiency, unspecified; I10 Essential (primary) hypertension; K21.9 Gastro-esophageal reflux disease without esophagitis; L40.9 Psoriasis, unspecified; R74.8 Abnormal levels of other serum enzymes; H54.62 Unqualified visual loss, left eye, normal vision right eye; I69.898 Other sequelae of other cerebrovascular disease; Z87.891 Personal history of nicotine dependence; Z91.51 Personal history of suicidal behavior; Z91.011 Allergy to milk products
CPT/HCPCS: 36415; 80053; 85027; 86780; C9803; U0003; U0005

== ENCOUNTER 2021-09-16 18:32 | Inpatient (IN) | payer OTHER ==
[~2021-09-16 18:32] MED LIST: ACETAMINOPHEN 325 MG TABLET (FP) PO PRN; IBUPROFEN 400 MG TABLET (FP) PO PRN; LOPERAMIDE HCL 2 MG CAPSULE PO PRN; MAG HYDROX/AL HYDROX/SIMETH 30 ML UNIT-DOSE CUP PO PRN; MAGNESIUM CITRATE 300 ML BOTTLE PO PRN; MAGNESIUM HYDROX 2400MG/30ML ORAL SUSPENSION 30 ML CUP PO PRN; NICOTINE 10 MG CARTRIDGE (INHALER) IH PRN; NICOTINE POLACRILEX 2 MG GUM BC PRN; guaiFENesin 200 MG/10 ML 10 ML UNIT-DOSE CUPS PO PRN
[2021-09-16] MEDS: FAMOTIDINE 20 MG TABLET PO SCH (22:02)
[2021-09-16] MEDS: traZODone HCL 50 MG TABLET (FP) PO SCH (22:02)
[2021-09-16] MEDS: THIAMINE HCL 100 MG TABLET (FP) PO SCH (22:02)
[2021-09-16] MEDS: MELATONIN 5 MG TABLETS PO SCH (22:03)
[2021-09-17] MEDS: DOXYCYCLINE HYCLATE 100 MG CAPSULE PO SCH ×2 (09:51→17:54)
[2021-09-17] MEDS: amLODIPine BESYLATE 5 MG TABLET (FP) PO SCH (09:51)
[2021-09-17] MEDS: PRENATAL VITAMINS W/ FOLIC ACID TABLET (FP) PO SCH (09:52)
[2021-09-17] MEDS: FAMOTIDINE 20 MG TABLET PO SCH ×2 (09:52→21:52)
[2021-09-17] MEDS: ASPIRIN 81 MG CHEWABLE TABLETS PO SCH (09:52)
[2021-09-17] MEDS: FERROUS SO4 325 MG TABLET (FP) PO SCH (09:52)
[2021-09-17] MEDS ORDERED: PATIENT'S OWN MEDICATION (NON-FORMULARY) (Calcipotriene 0.005% Top Crm 60 GM Tube) TP SCH (10:00)
[2021-09-17] MEDS ORDERED: CALCIPOTRIENE 0.005% TP SCH (10:00)
[2021-09-17] MEDS: CALCIUM 500MG/VIT-D 200 UNITS COMBO TABLET (FP) PO SCH (11:03)
[2021-09-17] MEDS: metoPROLOL SUCCINATE 25 MG TAB.SR.24H (FP) PO SCH (11:03)
[2021-09-17] MEDS ORDERED: PNEUMOC 13-VAL CONJ-DIP CRM/PF 0.5 ML DISP.SYRIN IM ONE (12:00)
[2021-09-17] MEDS ORDERED: PNEUMOCOCCAL 23 VACCINE 0.5 ML VIAL IM ONE (12:00)
[2021-09-17] MEDS: CALCIPOTRIENE TP SCH ×2 (13:14→21:50)
[2021-09-17] MEDS: traZODone HCL 50 MG TABLET (FP) PO SCH (21:52)
[2021-09-17] MEDS: THIAMINE HCL 100 MG TABLET (FP) PO SCH (21:52)
[2021-09-17] MEDS: MELATONIN 5 MG TABLETS PO SCH (21:52)
[2021-09-17] MEDS: COLLOIDAL OATMEAL 1 BAR EACH TP PRN (22:07)
[2021-09-18] MEDS: CALCIUM 500MG/VIT-D 200 UNITS COMBO TABLET (FP) PO SCH (09:46)
[2021-09-18] MEDS: metoPROLOL SUCCINATE 25 MG TAB.SR.24H (FP) PO SCH (09:47)
[2021-09-18] MEDS: DOXYCYCLINE HYCLATE 100 MG CAPSULE PO SCH ×2 (09:47→21:05)
[2021-09-18] MEDS: FERROUS SO4 325 MG TABLET (FP) PO SCH (09:47)
[2021-09-18] MEDS: FAMOTIDINE 20 MG TABLET PO SCH ×2 (09:48→21:04)
[2021-09-18] MEDS: amLODIPine BESYLATE 5 MG TABLET (FP) PO SCH (09:48)
[2021-09-18] MEDS: PRENATAL VITAMINS W/ FOLIC ACID TABLET (FP) PO SCH (09:49)
[2021-09-18] MEDS: CALCIPOTRIENE TP SCH ×2 (09:50→21:05)
[2021-09-18] MEDS: ASPIRIN 81 MG CHEWABLE TABLETS PO SCH (11:28)
[2021-09-18] MEDS: THIAMINE HCL 100 MG TABLET (FP) PO SCH (21:04)
[2021-09-18] MEDS: traZODone HCL 50 MG TABLET (FP) PO SCH (21:04)
[2021-09-18] MEDS: MELATONIN 5 MG TABLETS PO SCH (21:06)
[2021-09-19] MEDS: FERROUS SO4 325 MG TABLET (FP) PO SCH (09:45)
[2021-09-19] MEDS: CALCIPOTRIENE TP SCH ×2 (09:46→22:47)
[2021-09-19] MEDS: ASPIRIN 81 MG CHEWABLE TABLETS PO SCH (09:46)
[2021-09-19] MEDS: amLODIPine BESYLATE 5 MG TABLET (FP) PO SCH (09:46)
[2021-09-19] MEDS: FAMOTIDINE 20 MG TABLET PO SCH ×2 (09:46→22:48)
[2021-09-19] MEDS: metoPROLOL SUCCINATE 25 MG TAB.SR.24H (FP) PO SCH (09:47)
[2021-09-19] MEDS: DOXYCYCLINE HYCLATE 100 MG CAPSULE PO SCH (09:47)
[2021-09-19] MEDS: PRENATAL VITAMINS W/ FOLIC ACID TABLET (FP) PO SCH (09:48)
[2021-09-19] MEDS: CALCIUM 500MG/VIT-D 200 UNITS COMBO TABLET (FP) PO SCH (10:56)
[2021-09-19] MEDS: DOXYCYCLINE HYCLATE 100 MG TABLET PO SCH (18:14)
[2021-09-19] MEDS: MELATONIN 5 MG TABLETS PO SCH (22:00)
[2021-09-19] MEDS: THIAMINE HCL 100 MG TABLET (FP) PO SCH (22:00)
[2021-09-19] MEDS: traZODone HCL 50 MG TABLET (FP) PO SCH (22:00)
[2021-09-20] MEDS: PRENATAL VITAMINS W/ FOLIC ACID TABLET (FP) PO SCH (09:40)
[2021-09-20] MEDS: FAMOTIDINE 20 MG TABLET PO SCH ×2 (09:41→22:01)
[2021-09-20] MEDS: CALCIUM 500MG/VIT-D 200 UNITS COMBO TABLET (FP) PO SCH (09:41)
[2021-09-20] MEDS: metoPROLOL SUCCINATE 25 MG TAB.SR.24H (FP) PO SCH (09:41)
[2021-09-20] MEDS: FERROUS SO4 325 MG TABLET (FP) PO SCH (09:41)
[2021-09-20] MEDS: ASPIRIN 81 MG CHEWABLE TABLETS PO SCH (09:41)
[2021-09-20] MEDS: amLODIPine BESYLATE 5 MG TABLET (FP) PO SCH (09:41)
[2021-09-20] MEDS: DOXYCYCLINE HYCLATE 100 MG TABLET PO SCH ×2 (09:44→18:08)
[2021-09-20] MEDS: CALCIPOTRIENE TP SCH ×2 (09:44→22:49)
[2021-09-20] MEDS: MELATONIN 5 MG TABLETS PO SCH (22:01)
[2021-09-20] MEDS: THIAMINE HCL 100 MG TABLET (FP) PO SCH (22:01)
[2021-09-20] MEDS: traZODone HCL 50 MG TABLET (FP) PO SCH (22:01)
[2021-09-20] MEDS: hydrOXYzine PAMOATE 25 MG CAPSULE (FP) PO PRN (22:04)
[2021-09-21] MEDS: CALCIUM 500MG/VIT-D 200 UNITS COMBO TABLET (FP) PO SCH (09:58)
[2021-09-21] MEDS: DOXYCYCLINE HYCLATE 100 MG TABLET PO SCH ×2 (09:59→17:50)
[2021-09-21] MEDS: FAMOTIDINE 20 MG TABLET PO SCH ×2 (09:59→21:53)
[2021-09-21] MEDS: ASPIRIN 81 MG CHEWABLE TABLETS PO SCH (09:59)
[2021-09-21] MEDS: FERROUS SO4 325 MG TABLET (FP) PO SCH (09:59)
[2021-09-21] MEDS: PRENATAL VITAMINS W/ FOLIC ACID TABLET (FP) PO SCH (09:59)
[2021-09-21] MEDS: metoPROLOL SUCCINATE 25 MG TAB.SR.24H (FP) PO SCH (10:01)
[2021-09-21] MEDS: CALCIPOTRIENE TP SCH ×2 (10:01→21:55)
[2021-09-21] MEDS: amLODIPine BESYLATE 5 MG TABLET (FP) PO SCH (10:01)
[2021-09-21] MEDS: THIAMINE HCL 100 MG TABLET (FP) PO SCH (21:51)
[2021-09-21] MEDS: traZODone HCL 50 MG TABLET (FP) PO SCH (21:51)
[2021-09-21] MEDS: MELATONIN 5 MG TABLETS PO SCH (21:51)
[2021-09-21] MEDS: hydrOXYzine PAMOATE 25 MG CAPSULE (FP) PO PRN (21:54)
[2021-09-22] MEDS: CALCIPOTRIENE TP SCH ×2 (10:11→22:15)
[2021-09-22] MEDS: CALCIUM 500MG/VIT-D 200 UNITS COMBO TABLET (FP) PO SCH (10:11)
[2021-09-22] MEDS: ASPIRIN 81 MG CHEWABLE TABLETS PO SCH (10:11)
[2021-09-22] MEDS: DOXYCYCLINE HYCLATE 100 MG TABLET PO SCH ×2 (10:12→18:10)
[2021-09-22] MEDS: amLODIPine BESYLATE 5 MG TABLET (FP) PO SCH (10:12)
[2021-09-22] MEDS: FERROUS SO4 325 MG TABLET (FP) PO SCH (10:12)
[2021-09-22] MEDS: FAMOTIDINE 20 MG TABLET PO SCH ×2 (10:13→22:15)
[2021-09-22] MEDS: PRENATAL VITAMINS W/ FOLIC ACID TABLET (FP) PO SCH (10:13)
[2021-09-22] MEDS: metoPROLOL SUCCINATE 25 MG TAB.SR.24H (FP) PO SCH (10:13)
[2021-09-22] MEDS: MELATONIN 5 MG TABLETS PO SCH (22:14)
[2021-09-22] MEDS: traZODone HCL 50 MG TABLET (FP) PO SCH (22:14)
[2021-09-22] MEDS: THIAMINE HCL 100 MG TABLET (FP) PO SCH (22:15)
[2021-09-22] MEDS: hydrOXYzine PAMOATE 25 MG CAPSULE (FP) PO PRN (22:16)
[2021-09-23] MEDS: CALCIUM 500MG/VIT-D 200 UNITS COMBO TABLET (FP) PO SCH (09:52)
[2021-09-23] MEDS: ASPIRIN 81 MG CHEWABLE TABLETS PO SCH (09:52)
[2021-09-23] MEDS: PRENATAL VITAMINS W/ FOLIC ACID TABLET (FP) PO SCH (09:52)
[2021-09-23] MEDS: FERROUS SO4 325 MG TABLET (FP) PO SCH (09:52)
[2021-09-23] MEDS: metoPROLOL SUCCINATE 25 MG TAB.SR.24H (FP) PO SCH (09:53)
[2021-09-23] MEDS: CALCIPOTRIENE TP SCH ×2 (09:53→23:01)
[2021-09-23] MEDS: amLODIPine BESYLATE 5 MG TABLET (FP) PO SCH (09:53)
[2021-09-23] MEDS: DOXYCYCLINE HYCLATE 100 MG TABLET PO SCH ×2 (09:53→17:37)
[2021-09-23] MEDS: FAMOTIDINE 20 MG TABLET PO SCH ×2 (09:53→21:46)
[2021-09-23] MEDS: traZODone HCL 50 MG TABLET (FP) PO SCH (21:46)
[2021-09-23] MEDS: MELATONIN 5 MG TABLETS PO SCH (21:46)
[2021-09-23] MEDS: THIAMINE HCL 100 MG TABLET (FP) PO SCH (21:46)
[2021-09-23] MEDS: hydrOXYzine PAMOATE 25 MG CAPSULE (FP) PO PRN (21:47)
[2021-09-24] MEDS: DOXYCYCLINE HYCLATE 100 MG TABLET PO SCH ×2 (10:13→17:28)
[2021-09-24] MEDS: metoPROLOL SUCCINATE 25 MG TAB.SR.24H (FP) PO SCH (10:13)
[2021-09-24] MEDS: CALCIPOTRIENE TP SCH (10:13)
[2021-09-24] MEDS: CALCIUM 500MG/VIT-D 200 UNITS COMBO TABLET (FP) PO SCH (10:13)
[2021-09-24] MEDS: PRENATAL VITAMINS W/ FOLIC ACID TABLET (FP) PO SCH (10:14)
[2021-09-24] MEDS: FERROUS SO4 325 MG TABLET (FP) PO SCH (10:14)
[2021-09-24] MEDS: FAMOTIDINE 20 MG TABLET PO SCH ×2 (10:14→21:31)
[2021-09-24] MEDS: amLODIPine BESYLATE 5 MG TABLET (FP) PO SCH (10:14)
[2021-09-24] MEDS: ASPIRIN 81 MG CHEWABLE TABLETS PO SCH (10:14)
[2021-09-24] MEDS: FLUOCINONIDE 0.05% TOP OINT (60 GM TUBE) TP SCH ×2 (10:29→21:35)
[2021-09-24] MEDS: THIAMINE HCL 100 MG TABLET (FP) PO SCH (21:31)
[2021-09-24] MEDS: traZODone HCL 50 MG TABLET (FP) PO SCH (21:31)
[2021-09-24] MEDS: MELATONIN 5 MG TABLETS PO SCH (21:32)
[2021-09-24] MEDS: hydrOXYzine PAMOATE 25 MG CAPSULE (FP) PO PRN (21:34)
[2021-09-25] MEDS: FERROUS SO4 325 MG TABLET (FP) PO SCH (09:12)
[2021-09-25] MEDS: amLODIPine BESYLATE 5 MG TABLET (FP) PO SCH (09:12)
[2021-09-25] MEDS: ASPIRIN 81 MG CHEWABLE TABLETS PO SCH (09:12)
[2021-09-25] MEDS: CALCIUM 500MG/VIT-D 200 UNITS COMBO TABLET (FP) PO SCH (09:12)
[2021-09-25] MEDS: PRENATAL VITAMINS W/ FOLIC ACID TABLET (FP) PO SCH (09:12)
[2021-09-25] MEDS: FAMOTIDINE 20 MG TABLET PO SCH ×2 (09:12→21:36)
[2021-09-25] MEDS: metoPROLOL SUCCINATE 25 MG TAB.SR.24H (FP) PO SCH (09:14)
[2021-09-25] MEDS: FLUOCINONIDE 0.05% TOP OINT (60 GM TUBE) TP SCH ×2 (09:14→21:37)
[2021-09-25] MEDS ORDERED: DOXYCYCLINE HYCLATE 100 MG CAPSULE PO SCH (18:00)
[2021-09-25] MEDS: THIAMINE HCL 100 MG TABLET (FP) PO SCH (21:36)
[2021-09-25] MEDS: traZODone HCL 50 MG TABLET (FP) PO SCH (21:36)
[2021-09-25] MEDS: MELATONIN 5 MG TABLETS PO SCH (21:37)
[2021-09-26] MEDS: metoPROLOL SUCCINATE 25 MG TAB.SR.24H (FP) PO SCH (09:43)
[2021-09-26] MEDS: CALCIUM 500MG/VIT-D 200 UNITS COMBO TABLET (FP) PO SCH (09:43)
[2021-09-26] MEDS: FLUOCINONIDE 0.05% TOP OINT (60 GM TUBE) TP SCH ×2 (09:43→23:53)
[2021-09-26] MEDS: amLODIPine BESYLATE 5 MG TABLET (FP) PO SCH (09:44)
[2021-09-26] MEDS: FAMOTIDINE 20 MG TABLET PO SCH ×2 (09:44→21:39)
[2021-09-26] MEDS: PRENATAL VITAMINS W/ FOLIC ACID TABLET (FP) PO SCH (09:44)
[2021-09-26] MEDS: ASPIRIN 81 MG CHEWABLE TABLETS PO SCH (09:44)
[2021-09-26] MEDS: FERROUS SO4 325 MG TABLET (FP) PO SCH (09:44)
[2021-09-26] MEDS: MELATONIN 5 MG TABLETS PO SCH (21:39)
[2021-09-26] MEDS: THIAMINE HCL 100 MG TABLET (FP) PO SCH (21:39)
[2021-09-26] MEDS: traZODone HCL 50 MG TABLET (FP) PO SCH (21:39)
[2021-09-26] MEDS: hydrOXYzine PAMOATE 25 MG CAPSULE (FP) PO PRN (21:40)
[2021-09-27] MEDS: CALCIUM 500MG/VIT-D 200 UNITS COMBO TABLET (FP) PO SCH (09:43)
[2021-09-27] MEDS: metoPROLOL SUCCINATE 25 MG TAB.SR.24H (FP) PO SCH (09:44)
[2021-09-27] MEDS: FERROUS SO4 325 MG TABLET (FP) PO SCH (09:44)
[2021-09-27] MEDS: amLODIPine BESYLATE 5 MG TABLET (FP) PO SCH (09:44)
[2021-09-27] MEDS: ASPIRIN 81 MG CHEWABLE TABLETS PO SCH (09:44)
[2021-09-27] MEDS: FAMOTIDINE 20 MG TABLET PO SCH ×2 (09:45→21:54)
[2021-09-27] MEDS: FLUOCINONIDE 0.05% TOP OINT (60 GM TUBE) TP SCH ×2 (09:45→21:54)
[2021-09-27] MEDS: PRENATAL VITAMINS W/ FOLIC ACID TABLET (FP) PO SCH (09:46)
[2021-09-27] MEDS: traZODone HCL 50 MG TABLET (FP) PO SCH (21:53)
[2021-09-27] MEDS: THIAMINE HCL 100 MG TABLET (FP) PO SCH (21:54)
[2021-09-27] MEDS: MELATONIN 5 MG TABLETS PO SCH (21:54)
[2021-09-27] MEDS: hydrOXYzine PAMOATE 25 MG CAPSULE (FP) PO PRN (21:56)
[2021-09-28] MEDS: FAMOTIDINE 20 MG TABLET PO SCH ×2 (10:25→21:56)
[2021-09-28] MEDS: PRENATAL VITAMINS W/ FOLIC ACID TABLET (FP) PO SCH (10:25)
[2021-09-28] MEDS: ASPIRIN 81 MG CHEWABLE TABLETS PO SCH (10:26)
[2021-09-28] MEDS: CALCIUM 500MG/VIT-D 200 UNITS COMBO TABLET (FP) PO SCH (10:26)
[2021-09-28] MEDS: amLODIPine BESYLATE 5 MG TABLET (FP) PO SCH (10:26)
[2021-09-28] MEDS: metoPROLOL SUCCINATE 25 MG TAB.SR.24H (FP) PO SCH (10:26)
[2021-09-28] MEDS: FERROUS SO4 325 MG TABLET (FP) PO SCH (10:27)
[2021-09-28] MEDS: FLUOCINONIDE 0.05% TOP OINT (60 GM TUBE) TP SCH ×2 (10:27→22:11)
[2021-09-28] MEDS: COLLOIDAL OATMEAL 1 BAR EACH TP PRN (10:28)
[2021-09-28] MEDS: traZODone HCL 50 MG TABLET (FP) PO SCH (21:56)
[2021-09-28] MEDS: MELATONIN 5 MG TABLETS PO SCH (21:56)
[2021-09-28] MEDS: hydrOXYzine PAMOATE 25 MG CAPSULE (FP) PO PRN (21:56)
[2021-09-28] MEDS: THIAMINE HCL 100 MG TABLET (FP) PO SCH (21:56)
[2021-09-29] MEDS: FERROUS SO4 325 MG TABLET (FP) PO SCH (09:42)
[2021-09-29] MEDS: CALCIUM 500MG/VIT-D 200 UNITS COMBO TABLET (FP) PO SCH (09:43)
[2021-09-29] MEDS: FAMOTIDINE 20 MG TABLET PO SCH ×2 (09:43→21:45)
[2021-09-29] MEDS: amLODIPine BESYLATE 5 MG TABLET (FP) PO SCH (09:43)
[2021-09-29] MEDS: ASPIRIN 81 MG CHEWABLE TABLETS PO SCH (09:43)
[2021-09-29] MEDS: PRENATAL VITAMINS W/ FOLIC ACID TABLET (FP) PO SCH (09:43)
[2021-09-29] MEDS: metoPROLOL SUCCINATE 25 MG TAB.SR.24H (FP) PO SCH (09:43)
[2021-09-29] MEDS: FLUOCINONIDE 0.05% TOP OINT (60 GM TUBE) TP SCH ×2 (09:44→21:45)
[2021-09-29] MEDS: MELATONIN 5 MG TABLETS PO SCH (21:45)
[2021-09-29] MEDS: traZODone HCL 50 MG TABLET (FP) PO SCH (21:45)
[2021-09-29] MEDS: THIAMINE HCL 100 MG TABLET (FP) PO SCH (21:45)
[2021-09-29] MEDS: hydrOXYzine PAMOATE 25 MG CAPSULE (FP) PO PRN (21:46)
[2021-09-30] MEDS: FERROUS SO4 325 MG TABLET (FP) PO SCH (09:43)
[2021-09-30] MEDS: metoPROLOL SUCCINATE 25 MG TAB.SR.24H (FP) PO SCH (09:43)
[2021-09-30] MEDS: CALCIUM 500MG/VIT-D 200 UNITS COMBO TABLET (FP) PO SCH (09:43)
[2021-09-30] MEDS: ASPIRIN 81 MG CHEWABLE TABLETS PO SCH (09:43)
[2021-09-30] MEDS: FAMOTIDINE 20 MG TABLET PO SCH ×2 (09:44→21:41)
[2021-09-30] MEDS: FLUOCINONIDE 0.05% TOP OINT (60 GM TUBE) TP SCH ×2 (09:44→21:45)
[2021-09-30] MEDS: PRENATAL VITAMINS W/ FOLIC ACID TABLET (FP) PO SCH (09:44)
[2021-09-30] MEDS: amLODIPine BESYLATE 5 MG TABLET (FP) PO SCH (09:44)
[2021-09-30] MEDS ORDERED: METHOCARBAMOL 500 MG TABLET PO PRN (09:58)
[2021-09-30] MEDS: THIAMINE HCL 100 MG TABLET (FP) PO SCH (21:41)
[2021-09-30] MEDS: traZODone HCL 50 MG TABLET (FP) PO SCH (21:41)
[2021-09-30] MEDS: MELATONIN 5 MG TABLETS PO SCH (21:41)
[2021-09-30] MEDS: hydrOXYzine PAMOATE 25 MG CAPSULE (FP) PO PRN (21:43)
[2021-10-01] MEDS: ASPIRIN 81 MG CHEWABLE TABLETS PO SCH (09:57)
[2021-10-01] MEDS: FERROUS SO4 325 MG TABLET (FP) PO SCH (09:57)
[2021-10-01] MEDS: amLODIPine BESYLATE 5 MG TABLET (FP) PO SCH (09:57)
[2021-10-01] MEDS: CALCIUM 500MG/VIT-D 200 UNITS COMBO TABLET (FP) PO SCH (09:58)
[2021-10-01] MEDS: FAMOTIDINE 20 MG TABLET PO SCH ×2 (09:58→21:55)
[2021-10-01] MEDS: FLUOCINONIDE 0.05% TOP OINT (60 GM TUBE) TP SCH ×2 (09:58→21:56)
[2021-10-01] MEDS: metoPROLOL SUCCINATE 25 MG TAB.SR.24H (FP) PO SCH (09:58)
[2021-10-01] MEDS: PRENATAL VITAMINS W/ FOLIC ACID TABLET (FP) PO SCH (09:58)
[2021-10-01] MEDS: THIAMINE HCL 100 MG TABLET (FP) PO SCH (21:55)
[2021-10-01] MEDS: traZODone HCL 50 MG TABLET (FP) PO SCH (21:55)
[2021-10-01] MEDS: MELATONIN 5 MG TABLETS PO SCH (21:55)
[2021-10-01] MEDS: hydrOXYzine PAMOATE 25 MG CAPSULE (FP) PO PRN (21:55)
[2021-10-02] MEDS: ASPIRIN 81 MG CHEWABLE TABLETS PO SCH (09:30)
[2021-10-02] MEDS: CALCIUM 500MG/VIT-D 200 UNITS COMBO TABLET (FP) PO SCH (09:30)
[2021-10-02] MEDS: amLODIPine BESYLATE 5 MG TABLET (FP) PO SCH (09:30)
[2021-10-02] MEDS: FLUOCINONIDE 0.05% TOP OINT (60 GM TUBE) TP SCH ×2 (09:31→21:59)
[2021-10-02] MEDS: FERROUS SO4 325 MG TABLET (FP) PO SCH (09:31)
[2021-10-02] MEDS: FAMOTIDINE 20 MG TABLET PO SCH ×2 (09:31→21:58)
[2021-10-02] MEDS: PRENATAL VITAMINS W/ FOLIC ACID TABLET (FP) PO SCH (09:31)
[2021-10-02] MEDS: metoPROLOL SUCCINATE 25 MG TAB.SR.24H (FP) PO SCH (09:31)
[2021-10-02] MEDS: MELATONIN 5 MG TABLETS PO SCH (21:58)
[2021-10-02] MEDS: hydrOXYzine PAMOATE 25 MG CAPSULE (FP) PO PRN (21:58)
[2021-10-02] MEDS: traZODone HCL 50 MG TABLET (FP) PO SCH (21:58)
[2021-10-02] MEDS: THIAMINE HCL 100 MG TABLET (FP) PO SCH (21:59)
[2021-10-03] MEDS: metoPROLOL SUCCINATE 25 MG TAB.SR.24H (FP) PO SCH (09:48)
[2021-10-03] MEDS: CALCIUM 500MG/VIT-D 200 UNITS COMBO TABLET (FP) PO SCH (09:48)
[2021-10-03] MEDS: FAMOTIDINE 20 MG TABLET PO SCH ×2 (09:49→21:38)
[2021-10-03] MEDS: FLUOCINONIDE 0.05% TOP OINT (60 GM TUBE) TP SCH ×2 (09:49→23:51)
[2021-10-03] MEDS: PRENATAL VITAMINS W/ FOLIC ACID TABLET (FP) PO SCH (09:49)
[2021-10-03] MEDS: amLODIPine BESYLATE 5 MG TABLET (FP) PO SCH (09:49)
[2021-10-03] MEDS: ASPIRIN 81 MG CHEWABLE TABLETS PO SCH (09:49)
[2021-10-03] MEDS: traZODone HCL 50 MG TABLET (FP) PO SCH (21:38)
[2021-10-03] MEDS: hydrOXYzine PAMOATE 25 MG CAPSULE (FP) PO PRN (21:38)
[2021-10-03] MEDS: THIAMINE HCL 100 MG TABLET (FP) PO SCH (21:38)
[2021-10-03] MEDS: MELATONIN 5 MG TABLETS PO SCH (21:38)
[2021-10-04] MEDS: FLUOCINONIDE 0.05% TOP OINT (60 GM TUBE) TP SCH ×2 (09:31→21:22)
[2021-10-04] MEDS: FAMOTIDINE 20 MG TABLET PO SCH ×2 (09:31→21:21)
[2021-10-04] MEDS: amLODIPine BESYLATE 5 MG TABLET (FP) PO SCH (09:31)
[2021-10-04] MEDS: ASPIRIN 81 MG CHEWABLE TABLETS PO SCH (09:31)
[2021-10-04] MEDS: PRENATAL VITAMINS W/ FOLIC ACID TABLET (FP) PO SCH (09:31)
[2021-10-04] MEDS: CALCIUM 500MG/VIT-D 200 UNITS COMBO TABLET (FP) PO SCH (09:45)
[2021-10-04] MEDS: metoPROLOL SUCCINATE 25 MG TAB.SR.24H (FP) PO SCH (10:20)
[2021-10-04] MEDS: hydrOXYzine PAMOATE 25 MG CAPSULE (FP) PO PRN (21:21)
[2021-10-04] MEDS: traZODone HCL 50 MG TABLET (FP) PO SCH (21:21)
[2021-10-04] MEDS: THIAMINE HCL 100 MG TABLET (FP) PO SCH (21:21)
[2021-10-04] MEDS: MELATONIN 5 MG TABLETS PO SCH (21:21)
[2021-10-05] MEDS: FAMOTIDINE 20 MG TABLET PO SCH ×2 (09:16→21:32)
[2021-10-05] MEDS: ASPIRIN 81 MG CHEWABLE TABLETS PO SCH (09:16)
[2021-10-05] MEDS: amLODIPine BESYLATE 5 MG TABLET (FP) PO SCH (09:16)
[2021-10-05] MEDS: CALCIUM 500MG/VIT-D 200 UNITS COMBO TABLET (FP) PO SCH (09:16)
[2021-10-05] MEDS: PRENATAL VITAMINS W/ FOLIC ACID TABLET (FP) PO SCH (09:17)
[2021-10-05] MEDS: FLUOCINONIDE 0.05% TOP OINT (60 GM TUBE) TP SCH ×2 (09:17→21:33)
[2021-10-05] MEDS: metoPROLOL SUCCINATE 25 MG TAB.SR.24H (FP) PO SCH (09:18)
[2021-10-05] MEDS: MELATONIN 5 MG TABLETS PO SCH (21:31)
[2021-10-05] MEDS: hydrOXYzine PAMOATE 25 MG CAPSULE (FP) PO PRN (21:32)
[2021-10-05] MEDS: THIAMINE HCL 100 MG TABLET (FP) PO SCH (21:32)
[2021-10-05] MEDS: traZODone HCL 50 MG TABLET (FP) PO SCH (21:32)
[2021-10-06] MEDS: PRENATAL VITAMINS W/ FOLIC ACID TABLET (FP) PO SCH (09:59)
[2021-10-06] MEDS: ASPIRIN 81 MG CHEWABLE TABLETS PO SCH (09:59)
[2021-10-06] MEDS: amLODIPine BESYLATE 5 MG TABLET (FP) PO SCH (09:59)
[2021-10-06] MEDS: FAMOTIDINE 20 MG TABLET PO SCH ×2 (09:59→21:42)
[2021-10-06] MEDS: CALCIUM 500MG/VIT-D 200 UNITS COMBO TABLET (FP) PO SCH (10:00)
[2021-10-06] MEDS: FLUOCINONIDE 0.05% TOP OINT (60 GM TUBE) TP SCH ×2 (10:00→21:42)
[2021-10-06] MEDS: metoPROLOL SUCCINATE 25 MG TAB.SR.24H (FP) PO SCH (10:00)
[2021-10-06] MEDS: THIAMINE HCL 100 MG TABLET (FP) PO SCH (21:42)
[2021-10-06] MEDS: traZODone HCL 50 MG TABLET (FP) PO SCH (21:42)
[2021-10-06] MEDS: hydrOXYzine PAMOATE 25 MG CAPSULE (FP) PO PRN (21:42)
[2021-10-06] MEDS: MELATONIN 5 MG TABLETS PO SCH (21:42)
[2021-10-07] MEDS: metoPROLOL SUCCINATE 25 MG TAB.SR.24H (FP) PO SCH (09:57)
[2021-10-07] MEDS: CALCIUM 500MG/VIT-D 200 UNITS COMBO TABLET (FP) PO SCH (09:57)
[2021-10-07] MEDS: ASPIRIN 81 MG CHEWABLE TABLETS PO SCH (09:58)
[2021-10-07] MEDS: FAMOTIDINE 20 MG TABLET PO SCH ×2 (09:58→21:43)
[2021-10-07] MEDS: PRENATAL VITAMINS W/ FOLIC ACID TABLET (FP) PO SCH (09:58)
[2021-10-07] MEDS: FLUOCINONIDE 0.05% TOP OINT (60 GM TUBE) TP SCH ×2 (09:58→21:45)
[2021-10-07] MEDS: amLODIPine BESYLATE 5 MG TABLET (FP) PO SCH (09:58)
[2021-10-07] MEDS: hydrOXYzine PAMOATE 25 MG CAPSULE (FP) PO PRN (21:43)
[2021-10-07] MEDS: traZODone HCL 50 MG TABLET (FP) PO SCH (21:43)
[2021-10-07] MEDS: MELATONIN 5 MG TABLETS PO SCH (21:43)
[2021-10-07] MEDS: THIAMINE HCL 100 MG TABLET (FP) PO SCH (21:43)
[2021-10-08] MEDS: amLODIPine BESYLATE 5 MG TABLET (FP) PO SCH (10:10)
[2021-10-08] MEDS: CALCIUM 500MG/VIT-D 200 UNITS COMBO TABLET (FP) PO SCH (10:10)
[2021-10-08] MEDS: FAMOTIDINE 20 MG TABLET PO SCH ×2 (10:10→21:07)
[2021-10-08] MEDS: metoPROLOL SUCCINATE 25 MG TAB.SR.24H (FP) PO SCH (10:10)
[2021-10-08] MEDS: ASPIRIN 81 MG CHEWABLE TABLETS PO SCH (10:11)
[2021-10-08] MEDS: FLUOCINONIDE 0.05% TOP OINT (60 GM TUBE) TP SCH ×2 (10:11→21:07)
[2021-10-08] MEDS: PRENATAL VITAMINS W/ FOLIC ACID TABLET (FP) PO SCH (10:11)
[2021-10-08] MEDS: MELATONIN 5 MG TABLETS PO SCH (21:07)
[2021-10-08] MEDS: hydrOXYzine PAMOATE 25 MG CAPSULE (FP) PO PRN (21:07)
[2021-10-08] MEDS: THIAMINE HCL 100 MG TABLET (FP) PO SCH (21:07)
[2021-10-08] MEDS: traZODone HCL 50 MG TABLET (FP) PO SCH (21:07)
[2021-10-09] MEDS: metoPROLOL SUCCINATE 25 MG TAB.SR.24H (FP) PO SCH (09:48)
[2021-10-09] MEDS: FLUOCINONIDE 0.05% TOP OINT (60 GM TUBE) TP SCH ×2 (09:48→23:57)
[2021-10-09] MEDS: FAMOTIDINE 20 MG TABLET PO SCH ×2 (09:48→21:49)
[2021-10-09] MEDS: PRENATAL VITAMINS W/ FOLIC ACID TABLET (FP) PO SCH (09:48)
[2021-10-09] MEDS: amLODIPine BESYLATE 5 MG TABLET (FP) PO SCH (09:48)
[2021-10-09] MEDS: ASPIRIN 81 MG CHEWABLE TABLETS PO SCH (09:48)
[2021-10-09] MEDS: CALCIUM 500MG/VIT-D 200 UNITS COMBO TABLET (FP) PO SCH (09:48)
[2021-10-09] MEDS: MELATONIN 5 MG TABLETS PO SCH (21:49)
[2021-10-09] MEDS: hydrOXYzine PAMOATE 25 MG CAPSULE (FP) PO PRN (21:49)
[2021-10-09] MEDS: THIAMINE HCL 100 MG TABLET (FP) PO SCH (21:49)
[2021-10-09] MEDS: traZODone HCL 50 MG TABLET (FP) PO SCH (21:49)
[2021-10-10] MEDS: FLUOCINONIDE 0.05% TOP OINT (60 GM TUBE) TP SCH ×2 (09:20→21:12)
[2021-10-10] MEDS: CALCIUM 500MG/VIT-D 200 UNITS COMBO TABLET (FP) PO SCH (09:20)
[2021-10-10] MEDS: ASPIRIN 81 MG CHEWABLE TABLETS PO SCH (09:20)
[2021-10-10] MEDS: PRENATAL VITAMINS W/ FOLIC ACID TABLET (FP) PO SCH (09:21)
[2021-10-10] MEDS: FAMOTIDINE 20 MG TABLET PO SCH ×2 (09:21→21:12)
[2021-10-10] MEDS: metoPROLOL SUCCINATE 25 MG TAB.SR.24H (FP) PO SCH (10:26)
[2021-10-10] MEDS: amLODIPine BESYLATE 5 MG TABLET (FP) PO SCH (10:26)
[2021-10-10] MEDS: MELATONIN 5 MG TABLETS PO SCH (21:12)
[2021-10-10] MEDS: traZODone HCL 50 MG TABLET (FP) PO SCH (21:12)
[2021-10-10] MEDS: hydrOXYzine PAMOATE 25 MG CAPSULE (FP) PO PRN (21:12)
[2021-10-10] MEDS: THIAMINE HCL 100 MG TABLET (FP) PO SCH (23:12)
[2021-10-11] MEDS: metoPROLOL SUCCINATE 25 MG TAB.SR.24H (FP) PO SCH (10:21)
[2021-10-11] MEDS: amLODIPine BESYLATE 5 MG TABLET (FP) PO SCH (10:21)
[2021-10-11] MEDS: ASPIRIN 81 MG CHEWABLE TABLETS PO SCH (10:21)
[2021-10-11] MEDS: FAMOTIDINE 20 MG TABLET PO SCH ×2 (10:21→21:30)
[2021-10-11] MEDS: FLUOCINONIDE 0.05% TOP OINT (60 GM TUBE) TP SCH ×2 (10:22→21:29)
[2021-10-11] MEDS: PRENATAL VITAMINS W/ FOLIC ACID TABLET (FP) PO SCH (10:22)
[2021-10-11] MEDS: CALCIUM 500MG/VIT-D 200 UNITS COMBO TABLET (FP) PO SCH (10:22)
[2021-10-11] MEDS: traZODone HCL 50 MG TABLET (FP) PO SCH (21:29)
[2021-10-11] MEDS: hydrOXYzine PAMOATE 25 MG CAPSULE (FP) PO PRN (21:30)
[2021-10-11] MEDS: MELATONIN 5 MG TABLETS PO SCH (21:30)
[2021-10-11] MEDS: THIAMINE HCL 100 MG TABLET (FP) PO SCH (21:30)
[2021-10-12] MEDS: CALCIUM 500MG/VIT-D 200 UNITS COMBO TABLET (FP) PO SCH (09:28)
[2021-10-12] MEDS: metoPROLOL SUCCINATE 25 MG TAB.SR.24H (FP) PO SCH (09:29)
[2021-10-12] MEDS: ASPIRIN 81 MG CHEWABLE TABLETS PO SCH (09:29)
[2021-10-12] MEDS: FAMOTIDINE 20 MG TABLET PO SCH ×2 (09:29→21:36)
[2021-10-12] MEDS: amLODIPine BESYLATE 5 MG TABLET (FP) PO SCH (09:29)
[2021-10-12] MEDS: PRENATAL VITAMINS W/ FOLIC ACID TABLET (FP) PO SCH (09:30)
[2021-10-12] MEDS: FLUOCINONIDE 0.05% TOP OINT (60 GM TUBE) TP SCH ×2 (09:30→21:36)
[2021-10-12] MEDS: traZODone HCL 50 MG TABLET (FP) PO SCH (21:36)
[2021-10-12] MEDS: THIAMINE HCL 100 MG TABLET (FP) PO SCH (21:36)
[2021-10-12] MEDS: hydrOXYzine PAMOATE 25 MG CAPSULE (FP) PO PRN (21:36)
[2021-10-12] MEDS: MELATONIN 5 MG TABLETS PO SCH (21:36)
[2021-10-13 06:29] VITALS: TEMP 97.1
[2021-10-13] MEDS: FAMOTIDINE 20 MG TABLET PO SCH (09:04)
[2021-10-13] MEDS: amLODIPine BESYLATE 5 MG TABLET (FP) PO SCH (09:04)
[2021-10-13] MEDS: CALCIUM 500MG/VIT-D 200 UNITS COMBO TABLET (FP) PO SCH (09:04)
[2021-10-13] MEDS: PRENATAL VITAMINS W/ FOLIC ACID TABLET (FP) PO SCH (09:04)
[2021-10-13] MEDS: ASPIRIN 81 MG CHEWABLE TABLETS PO SCH (09:04)
[2021-10-13] MEDS: metoPROLOL SUCCINATE 25 MG TAB.SR.24H (FP) PO SCH (09:05)
[2021-10-13] MEDS: FLUOCINONIDE 0.05% TOP OINT (60 GM TUBE) TP SCH (09:06)
[2021-10-13 09:15] VITALS: BP 125/90; PULSE 92
== END 2021-10-13 10:03 | disposition home or self-care (01) | DRG 772 ==
LOC: YASAS 18:32 → Y3E 18:34
PROVIDERS: ADMIT Allergy & Immunology; ATTEND Allergy & Immunology
PROC: HZ42ZZZ Group Counseling for Substance Abuse Treatment, Cognitive-Behavioral (ICD-10-PCS; principal; 2021-09-16)
DX: F10.20 Alcohol dependence, uncomplicated (principal); F12.20 Cannabis dependence, uncomplicated; F17.210 Nicotine dependence, cigarettes, uncomplicated; F34.1 Dysthymic disorder; D50.9 Iron deficiency anemia, unspecified; E58 Dietary calcium deficiency; E83.51 Hypocalcemia; I10 Essential (primary) hypertension; K21.9 Gastro-esophageal reflux disease without esophagitis; L40.9 Psoriasis, unspecified; M94.0 Chondrocostal junction syndrome [Tietze]; Z86.59 Personal history of other mental and behavioral disorders
CPT/HCPCS: 36415; 71045-TC-FY; 84075; 90732; C9803; G0009; U0003; U0005